=== PATIENT | male | born 1990 | race Hispanic/Latino ===

== ENCOUNTER 2024-02-13 03:07 | Emergency (ER) | payer OTHER ==
[~2024-02-13] VITALS: Ht 175.3 cm; Wt 69.9 kg
[2024-02-13] MEDS: LIDOCAINE HCL 1% 20 ML VIAL INJ STA (03:53)
[2024-02-13] MEDS: ACETAMINOPHEN 500 MG TABLET PO ONE (03:54)
[2024-02-13] MEDS: DIPH,PERTUSS(ACELL),TET VAC/PF 0.5 ML VIAL IM ONE (03:55)
[2024-02-13] MEDS: NEOMY SULF/BACITRA/POLYMYXIN B 1 EACH PACKET TP ONE (04:34)
[2024-02-13 04:38] VITALS: BP 124/70; PULSE 74; RESP 18; O2SAT 99
== END 2024-02-13 04:44 | disposition home or self-care (01) ==
LOC: EEVIPCON 03:07 → EDSEX 03:07 → EDH 03:07
DX: S01.112A Laceration without foreign body of left eyelid and periocular area, initial encounter (principal); X58.XXXA Exposure to other specified factors, initial encounter; Y93.89 Activity, other specified; Y92.89 Other specified places as the place of occurrence of the external cause; Y99.8 Other external cause status
CPT/HCPCS: 12013; 70450; 70480; 72125; 90471; 90715

== ENCOUNTER 2024-09-14 21:26 | Emergency (ER) | payer OTHER ==
[~2024-09-14] VITALS: Ht 167.6 cm; Wt 68.0 kg
[2024-09-14 22:34] LABS: BASOPHILS # (AUTO) 0.01 K/uL (0.00-0.20); BASOPHILS % (AUTO) 0.3 % (0.0-5.0); EOSINOPHILS # (AUTO) 0.08 K/uL (0.00-0.70); EOSINOPHILS % (AUTO) 2.2 % (0.0-8.0); HEMATOCRIT 38.5 % (42-54); IMMATURE GRANULOCYTE ABSOLUTE 0.01 K/uL (0-1); LYMPHOCYTES # (AUTO) 1.1 K/uL (1.0-4.8); MEAN CORPUSCULAR HEMOGLOBIN 29.5 pg (27.0-33.0); MEAN CORPUSCULAR HGB CONC 35.6 g/dL (32.0-36.0); MONOCYTES # (AUTO) 0.6 K/uL (0.1-1.0); MONOCYTES % (AUTO) 16.9 % (3.0-13.0); NEUTROPHILS # (AUTO) 1.8 K/uL (1.8-7.7); NEUTROPHILS % (AUTO) 50.3 % (40.0-77.0); PLATELET COUNT (AUTO) 153 K/uL (130-400); RED BLOOD CELL COUNT(AUTO) 4.64 MIL/uL (4.50-6.20); RED CELL DISTRIBUTION WIDTH 13.7 % (11.0-15.5); WHITE BLOOD COUNT (AUTO) 3.6 K/uL (4.8-10.8)
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
[2024-09-14] MEDS ORDERED: PHEN26CR2 TP (22:47)
[2024-09-14] MEDS ORDERED: NYST15CR40 TP (22:47)
[2024-09-14] MEDS ORDERED: CLOT15CR5 TP (22:47)
[2024-09-14] MEDS ORDERED: DOXY100T21 PO (22:47)
[2024-09-14 23:27] LABS: APPEARANCE,URINE CLEAR (CLEAR); BILIRUBIN,URINE NEGATIVE (NEGATIVE); COLOR,URINE LIGHT-YELLOW (YELLOW); GLUCOSE, URINE (UA) NEGATIVE (NEGATIVE); KETONES,URINE NEGATIVE (NEGATIVE); LEUKOCYTE ESTERASE ,URINE 25 Leu/uL (NEGATIVE); NITRATE,URINE NEGATIVE (NEGATIVE); OCCULT BLOOD,URINE NEGATIVE (NEGATIVE); PH,URINE 6.5 (5.0-8.0); PROTEIN,URINE NEGATIVE (NEGATIVE); UROBILINOGEN,URINE 0.2 mg/dL (0.2-1.0)
[2024-09-14 23:30] LABS: ADD UA MICROSCOPIC YES
[2024-09-14] MEDS: CEFTRIAXONE 2GM VIAL IVPB ONE (23:31)
[2024-09-14 23:35] LABS: MUCUS,URINE RARE LPF (None Seen)
[2024-09-14] MEDS: DOXYCYCLINE 100MG+NS 250ML 250 ML IV SCH (23:45)
[2024-09-14] MEDS: fluCONazole 100 MG TAB PO ONE (23:48)
[2024-09-15 01:55] VITALS: BP 137/79; PULSE 90; RESP 18; TEMP 98; O2SAT 99
== END 2024-09-15 02:08 ==
LOC: EEVIPCON 21:26 → EDH 21:26
DX: B37.49 Other urogenital candidiasis (principal); N48.89 Other specified disorders of penis; Z79.899 Other long term (current) drug therapy
CPT/HCPCS: 99284; 96374; 96375; 86592; 85025; 87491; 87591; 81001; 36415; J0696; J3490